=== PATIENT | male | born 1950 | race Hispanic/Latino ===

== ENCOUNTER 2017-07-23 02:49 | Inpatient (IN) | payer BC, MEDICARE ==
[2017-07-23] MEDS ORDERED: Albuterol-Ipratrop 3 mg / 0.5 (3 ml) UD IH STA (02:54)
--- NOTE | 2017-07-23 03:20 | ED PDOC ---
Arrival/HPI - General Chief Complaint: Shortness Of Breath Time Seen by Provider: 07/23/17 02:52 Historian: Patient - Critical Care Critical Care Minutes: 30 minutes - History of Present Illness Narrative History of Present Illness (Text): 07/23/17 03:21 A 67 year old male, whose past medical history includes hypertension and CAD s/ p cardiac stents (2012), was brought in by EMS to the emergency department following onset of shortness of breath at home. Patient woke up with difficulty breathing. Denies any chest pain. Patient was placed on BIPAP prior to arrival to the emergency department by paramedics. Patient denies any priror history of fever, chills, cough. Denies any leg pain or any other complaints at this time. Symptom Onset: Sudden Symptom Course: Unchanged Activities at Onset: Rest Context: Home Past Medical History - Provider Review Nursing Documentation Reviewed: Yes - Infectious Disease Hx of Infectious Diseases: None - Cardiac Hx PR: Yes Hx Hypertension: Yes Hx Pacemaker: No - Neurological Hx Paralysis: No - Hematological/Oncological Hx Blood Transfusions: No Hx Blood Transfusion Reaction: No - Musculoskeletal/Rheumatological Hx Musculoskeletal Disorders: No Hx Gout: Yes - Psychiatric Hx Emotional Abuse: No Hx Physical Abuse: No Hx Substance Use: No - Surgical History Hx Cardiac Catheterization: Yes Hx Coronary Stent: Yes - Anesthesia Hx Anesthesia Reactions: No Hx Malignant Hyperthermia: No - Suicidal Assessment Feels Threatened In Home Enviroment: No Family/Social History - Physician Review Nursing Documentation Reviewed: Yes Family/Social History: No Known Family HX Smoking Status: Never Smoked Hx Alcohol Use: Yes ([employer]) Hx Substance Use: No Allergies/Home Meds Allergies/Adverse Reactions: Allergies No Known Allergies Allergy (Verified 07/23/17 02:56) Home Medications: Home Meds Medication Instructions Recorded Confirmed Allopurinol [Zyloprim] 100 mg PO DAILY 07/23/17 07/23/17 Metoprolol Tartrate [Lopressor] 50 mg PO BID 07/23/17 07/23/17 Pravastatin Sodium [Pravachol] 20 mg PO DAILY 07/23/17 07/23/17 Valsartan [Diovan] 40 mg PO DAILY 07/23/17 07/23/17 Review of Systems - Physician Review All systems were reviewed & negative as marked: Yes - Review of Systems Constitutional: absent: Fevers, Other (chills) Respiratory: SOB. absent: Cough Cardiovascular: absent: Chest Pain Musculoskeletal: absent: Other (leg pain) Physical Exam Vital Signs Reviewed: Yes Vital Signs Temp Pulse Resp BP Pulse Ox 07/23/17 05:00 98.6 F 101 H 16 142/101 H 98 07/23/17 04:09 109 H 130/91 H 07/23/17 04:00 108 H 07/23/17 03:42 98.2 F 110 H 20 130/91 H 98 07/23/17 03:08 30 H 07/23/17 03:02 177/115 H Appearance: Positive for: Comfortable, Other (mild respiratory distress on BIPAP ) Pain Distress: None Mental Status: Positive for: Alert and Oriented X 3 - Systems Exam Head: Present: Atraumatic, Normocephalic Pupils: Present: PERRL Extroacular Muscles: Present: EOMI Conjunctiva: Present: Normal Mouth: Present: Moist Mucous Membranes Neck: Present: Normal Range of Motion Respiratory/Chest: Present: Respiratory Distress (mild), Rales (b/l) Cardiovascular: Present: Normal S1, S2, Tachycardic. No: Murmurs Abdomen: Present: Normal Bowel Sounds. No: Tenderness, Distention, Peritoneal Signs Back: Present: Normal Inspection Upper Extremity: Present: Normal Inspection, NORMAL PULSES, Neurovascularly Intact. No: Cyanosis, Edema Lower Extremity: Present: Normal Inspection, NORMAL PULSES, Neurovascularly Intact. No: Edema Neurological: Present: GCS=15, CN II-XII Intact, Speech Normal, Motor Func Grossly Intact, Normal Sensory Function Skin: Present: Warm, Dry, Normal Color. No: Rashes Psychiatric: Present: Alert, Oriented x 3, Normal Insight, Normal Concentration Medical Decision Making ED Course and Treatment: 07/23/17 03:16 Impression: A 67 year old male with shortness of breath on BIPAP. Plan: -- EKG -- Chest xray -- labs -- Duoneb, Lasix -- BIPAP -- Reassess and disposition Progress Notes: EKG: Ordered, reviewed, and independently interpreted the EKG. Rate : 113 BPM Rhythm : sinus tachycardia Interpretation : incomplete left bundle branch block, anterolateral ST/T changes 07/23/17 03:30 Chest xray: Congestive heart failure, as read by me. 07/23/17 04:[address] Garcia, who accepts patient under her service. 07/23/17 04:[address] Grissom who will be on consult. Case discussed with Dr. Michelle Hill. Patient will be admitted to CCU for further management. - Lab Interpretations Lab Results: 07/23/17 03:55 07/23/17 03:00 Lab Results 07/23/17 03:55: pCO2 39, pO2 371.0 H, HCO3 24.7, ABG pH 7.41, ABG Total CO2 25.9 , ABG O2 Saturation 99.9 H, ABG O2 Content 24.0 H, ABG Base Excess 0.2, ABG Hemoglobin 16.9, ABG Carboxyhemoglobin 1.7 H, POC ABG HHb (Measured) 0.1, ABG Methemoglobin 1.1, ABG O2 Capacity 24.0, Hgb O2 Saturation 97.1, FiO2 100.0 07/23/17 03:55: WBC 10.3, RBC 5.10, Hgb 16.8, Hct 49.4, MCV 96.9, MCH 32.9, MCHC 34.0, RDW 13.0, Plt Count 159, MPV 12.3 H, Gran % 76.2 H, Lymph % (Auto) 15.2 L, Dade % (Auto) 7.0 H, Eos % (Auto) 1.3 L, Baso % (Auto) 0.3, Gran # 7.81 H, Lymph # 1.6, Dade # 0.7 H, Eos # 0.1, Baso # 0.03 07/23/17 03:00: TSH 3rd Generation 4.12 07/23/17 03:00: Triglycerides 291 H, Cholesterol 174, LDL Cholesterol Direct 105 , HDL Cholesterol 34 07/23/17 03:00: Sodium 139, Potassium 4.2, Chloride 102, Carbon Dioxide 27, Anion Gap 14, BUN 20, Creatinine 1.1, Est GFR ( Amer) > 60, Est GFR (Non- Af Amer) > 60, Random Glucose 146 H, Calcium 10.0, Total Bilirubin 0.8, AST 100 H, ALT 52, Alkaline Phosphatase 81, Lactate Dehydrogenase 1046 H, Total Creatine Kinase 554 H, CK-MB (CK-2) 29.0 H, CK-MB (CK-2) % 5.2 H, Troponin I 6.05 H*, NT-Pro-B Natriuret Pep 1570 H, Total Protein 7.3, Albumin 4.2, Globulin 3.2, Albumin/Globulin Ratio 1.3 07/23/17 03:00: PT 14.3 H, INR 1.30 H, APTT 31.7 I have reviewed the lab results: Yes - RAD Interpretation Radiology Orders: 07/23/17 02:54 CHEST PORTABLE [RAD] Stat - EKG Interpretation Interpreted by ED Physician: Yes Type: 12 lead EKG - Medication Orders Current Medication Orders: Albuterol/Ipratropium (Duoneb 3 Mg/0.5 Mg (3 Ml) Ud) 3 ml IH Q2H PRN PRN Reason: Shortness of Breath Aspirin (Ecotrin) 81 mg PO DAILY [facility] Atorvastatin Calcium (Lipitor) 10 mg PO DIN [facility] Clopidogrel Bisulfate (Plavix) 75 mg PO DAILY [facility] Enoxaparin Sodium (Lovenox) 80 mg SC Q12 [facility] PRN Reason: Protocol Furosemide (Lasix) 80 mg IVP Q12 [facility] Losartan Potassium (Cozaar) 12.5 mg PO DAILY [facility] Metoprolol Tartrate (Lopressor) 50 mg PO BID [facility] Nitroglycerin (Nitro-Bid 2% Oint) 1 ea TOP Q4H PRN PRN Reason: Chest pain Pantoprazole Sodium (Protonix Ec Tab) 40 mg PO 0600 [facility] Discontinued Medications Albuterol/Ipratropium (Duoneb 3 Mg/0.5 Mg (3 Ml) Ud) 3 ml IH ONCE STA Stop: 07/23/17 02:55 Last Admin: 07/23/17 03:03 Dose: 3 ml Aspirin (Aspirin) 325 mg PO ONCE STA Stop: 07/23/17 03:31 Last Admin: 07/23/17 03:41 Dose: Enoxaparin Sodium (Lovenox) 80 mg SC STAT STA PRN Reason: Protocol Stop: 07/23/17 04:30 Last Admin: 07/23/17 04:58 Dose: 80 mg Subcutaneous Administrations Document 07/23/17 04:58 AB (Rec: 07/23/17 04:59 AB [facility] [id number]) Injection Site MAR Injection Site Right Abdomen Charges for Administration # of Subcutaneous Administrations 1 Furosemide (Lasix) 80 mg IVP ONCE ONE Stop: 07/23/17 02:55 Last Admin: 07/23/17 03:02 Dose: 80 mg MAR Blood Pressure Document 07/23/17 03:02 AB (Rec: 07/23/17 03:02 AB [facility] [id number]) Blood Pressure Blood Pressure (100/60-150/90) 177/115 IVP Administration Document 07/23/17 03:02 AB (Rec: 07/23/17 03:02 AB [facility] [id number]) Charges for Administration # of IVP Administrations 1 Metoprolol Tartrate (Lopressor) 25 mg PO ONCE STA Stop: 07/23/17 04:00 Last Admin: 07/23/17 04:09 Dose: 25 mg MAR Pulse and Blood Pressure Document 07/23/17 04:09 SC (Rec: 07/23/17 04:09 SC [id number]) Pulse Pulse Rate (60-90) 109 Blood Pressure Blood Pressure (100/60-150/90) 130/91 Nitroglycerin (Nitro-Bid 2% Oint) 1 ea TOP ONCE STA Stop: 07/23/17 03:31 Last Admin: 07/23/17 03:40 Dose: 1 ea - Scribe Statement The provider has reviewed the documentation as recorded by the Enedelia Flaherty Provider Scribe Attestation: All medical record entries made by the Scribe were at my direction and personally dictated by me. I have reviewed the chart and agree that the record accurately reflects my personal performance of the history, physical exam, medical decision making, and the department course for this patient. I have also personally directed, reviewed, and agree with the discharge instructions and disposition. Disposition/Present on Arrival - Present on Arrival Any Indicators Present on Arrival: No History of DVT/PE: No History of Uncontrolled Diabetes: No Urinary Catheter: No History of Decub. Ulcer: No History Surgical Site Infection Following: None - Disposition Have Diagnosis and Disposition been Completed?: Yes Diagnosis: CHF (congestive heart failure), NSTEMI (non-ST elevated myocardial infarction) Disposition: HOSPITALIZED Disposition Time: 05:01 Patient Plan: Admission Patient Problems: Current Active Problems Problem Status Onset CHF (congestive heart failure) Acute NSTEMI (non-ST elevated myocardial infarction) Acute Condition: GUARDED
[2017-07-23] MEDS ORDERED: Nitroglycerin 2% Ointment Foilpak UD TOP STA (03:30)
[2017-07-23 03:36] LABS: INR 1.3 (0.93-1.08); PARTIAL THROMBOPLASTIN TIME 31.7 Seconds (25.1-36.5)
[2017-07-23 03:59] LABS: ALB/GLOB RATIO 1.3 (1.1-1.8); ALKALINE PHOSPHATASE 81 U/L (38-126); ALT/SGPT 52 U/L (7-56); AST/SGOT 100 U/L (17-59); BILIRUBIN,TOTAL 0.8 mg/dL (0.2-1.3); BLOOD UREA NITROGEN 20 mg/dL (7-21); CARBON DIOXIDE 27 mmol/L (21-33); CHLORIDE 102 mmol/L (98-107); GFR AFRICAN-AMERICAN > 60; GLUCOSE,RANDOM 146 mg/dL (70-110); POTASSIUM 4.2 mmol/L (3.6-5.0); SODIUM 139 mmol/L (132-148); TOTAL PROTEIN 7.3 g/dL (5.8-8.3); TROPONIN I 6.05 ng/mL
[2017-07-23 04:12] LABS: ARTERIAL BLOOD GAS HCO3 24.7 mmol/L (21-28); ARTERIAL BLOOD GAS PH 7.41 (7.35-7.45); ARTERIAL BLOOD HGB O2 SAT 97.1 % (95.0-98.0); CARBOXYHEMOGLOBIN 1.7 % (0.5-1.5); HHB 0.1 % (0-5); METHEMOGLOBIN 1.1 % (0.0-3.0)
[2017-07-23 04:14] LABS: BASO # 0.03 K/mm3 (0.0-2.0); BASO % 0.3 % (0.0-3.0); EOS # 0.1 (0.0-0.7); EOS % 1.3 % (1.5-5.0); GRAN # 7.81 (1.4-6.5); GRAN % 76.2 % (50.0-68.0); HEMATOCRIT 49.4 % (42.0-52.0); LYMPH # 1.6 (1.2-3.4); LYMPH % 15.2 % (22.0-35.0); MEAN CELL VOLUME 96.9 fl (80.0-105.0); MEAN CORPUSCULAR HEMOGLOBIN 32.9 pg (25.0-35.0); MEAN PLATELET VOLUME 12.3 fl (7.0-11.0); MONO # 0.7 (0.1-0.6); WHITE BLOOD COUNT 10.3 10^3/ul (4.5-11.0)
[2017-07-23] MEDS ORDERED: Enoxaparin 80 mg Syringe SC STA (04:29)
[2017-07-23] MEDS ORDERED: Albuterol-Ipratrop 3 mg / 0.5 (3 ml) UD IH PRN (05:22)
[2017-07-23] MEDS ORDERED: Nitroglycerin 2% Ointment Foilpak UD TOP PRN (05:29)
--- NOTE | 2017-07-23 05:42 | CP.PCM.CON ---
<Manuel Mcmahon - Last Filed: 07/23/17 05:32> History of Present Illness - History of Present Illness History of Present Illness: Manuel Mcmahon DO PGY1 - ICU Consult Note Consultation for NSTEMI HPI: 67 yo M with PMH HTN, HLD, CAD, PA 2013 s/p stents placed at [facility] presents to the ER by ambulance complaining of shortness of breath. His symptoms started yesterday around lunch time, after eating a salty meat loaf at a restaurant, then acutely worsened at 2 AM. He reports that he has been eating out frequently over the past 2-3 days. He denies any chest pain/ tightness/discomfort, palpitations, weakness, diaphoresis. No particular remitting or exacerbating factors. He denies recent illness. He does reports very mild nausea, without vomiting. No abdominal pain, diarrhea, constipation, fever, chills. Patient is unsure if he has gained or lost weight recently. Remainder of 12-point ROS negative. PMH: As above PSH: Cholecystectomy Soc: Prior smoker, quit 40 years ago; drinks socially; denies illicits FHx: PA in both parents, unsure of age All: NKDA Past Patient History - Infectious Disease Hx of Infectious Diseases: None - Past Social History Smoking Status: Never Smoked - CARDIAC Hx Heart Attack: Yes Hx Hypertension: Yes Hx Pacemaker: No - NEUROLOGICAL Hx Paralysis: No - HEMATOLOGICAL/ONCOLOGICAL Hx Blood Transfusions: No Hx Blood Transfusion Reaction: No - MUSCULOSKELETAL/RHEUMATOLOGICAL Hx Musculoskeletal Disorders: No Hx Gout: Yes - PSYCHIATRIC Hx Emotional Abuse: No Hx Physical Abuse: No Hx Substance Use: No - SURGICAL HISTORY Hx Cardiac Catheterization: Yes Hx Coronary Stent: Yes - ANESTHESIA Hx Anesthesia Reactions: No Hx Malignant Hyperthermia: No Meds Allergies/Adverse Reactions: Allergies Allergy/AdvReac Type Severity Reaction Status Date / Time No Known Allergies Allergy Verified 07/23/17 02:56 - Medications Medications: Current Medications Albuterol/Ipratropium (Duoneb 3 Mg/0.5 Mg (3 Ml) Ud) 3 ml IH Q2H PRN PRN Reason: Shortness of Breath Aspirin (Ecotrin) 81 mg PO DAILY [facility] Clopidogrel Bisulfate (Plavix) 75 mg PO DAILY [facility] Enoxaparin Sodium (Lovenox) 80 mg SC Q12 [facility] PRN Reason: Protocol Furosemide (Lasix) 80 mg IVP Q12 [facility] Metoprolol Tartrate (Lopressor) 50 mg PO BID [facility] Nitroglycerin (Nitro-Bid 2% Oint) 1 ea TOP Q4H PRN PRN Reason: Chest pain Non-Formulary Medication (Pravastatin Sodium [Pravachol]) 20 mg PO DAILY [facility] Non-Formulary Medication (Valsartan [Diovan]) 20 mg PO DAILY [facility] Pantoprazole Sodium (Protonix Ec Tab) 40 mg PO 0600 [facility] Physical Exam - Constitutional Appears: Non-toxic, No Acute Distress Additional comments: Patient on BIPAP, speaking comfortably - Head Exam Head Exam: ATRAUMATIC, NORMOCEPHALIC - Eye Exam Eye Exam: EOMI, Normal appearance, PERRL - ENT Exam ENT Exam: Mucous Membranes Moist - Neck Exam Neck exam: Positive for: Normal Inspection - Respiratory Exam Respiratory Exam: Rales (bibasilar), NORMAL BREATHING PATTERN - Cardiovascular Exam Cardiovascular Exam: Tachycardia, REGULAR RHYTHM, +S1, +S2 - GI/Abdominal Exam GI & Abdominal Exam: Normal Bowel Sounds, Soft. absent: Distended, Firm, Guarding, Rebound, Rigid, Tenderness - Extremities Exam Extremities exam: Positive for: pedal edema (trace pretibial pitting edema to mid-goldberg). Negative for: calf tenderness - Neurological Exam Neurological exam: Alert, CN II-XII Intact, Oriented x3 - Psychiatric Exam Psychiatric exam: Normal Affect, Normal Mood - Skin Skin Exam: Dry, Intact, Normal Color Results - Vital Signs Recent Vital Signs: Last Vital Signs Temp 98.6 F 07/23/17 05:00 Pulse 101 H 07/23/17 05:00 Resp 16 07/23/17 05:00 BP 142/101 H 07/23/17 05:00 Pulse Ox 98 07/23/17 05:00 - Labs Result Diagrams: 07/23/17 03:55 07/23/17 03:00 Assessment & Plan - Assessment and Plan (Free Text) Assessment: 67 yo M with PMH HTN, HLD, CAD, PA 2013 s/p stents placed at [facility] presents to the ER by ambulance complaining of shortness of breath. Admitted to ICU for probable NSTEMI Plan Neuro - Patient AAOx3, mentating normally - Maintain normothermia Cardio - Patient has history of CAD (PA) s/p stents at [facility]; No prior echo at this facility - CXR significant for pulmonary vascular congestion, EKG shows ST depressions in lavell-lateral leads (pending official read), elevated troponin and BNP - Trend troponins and repeat EKG - Acute symptoms likely 2/2 NSTEMI vs CHF exacerbation - Patient received IV lasix and lovenox and placed on BIPAP in the ER - Continue IV lasix - Continue therapeutic lovenox - Continue BIPAP - HOB>30 - Continue home DAPT, BB, ARB - Ordered Nitro paste PRN for chest pain - Ordered Lipid panel, TSH, A1c - Cardiology consult requested, appreciate recs Pulm - Patient on BIPAP; saturating well on 35% FiO2 - CXR shows pulm vascular congestion compared to prior Rib XR (pending official read) - Continue Lasix and BIPAP as above - PRN duonebs ordered - Titrate FiO2 to maintain SaO2 >90% GI - maintain NPO pending cardio recs - Protonix for PPx Renal - Maintain euvolemia - Continue Lasix as above - Monitor I&O and daily weight - Monitor and replete lytes as needed Endo - Patient does not have history of diabetes; currently euglycemic - f/u TSH and A1c ID - Afebrile, no leukocytosis - Mild transaminemia; likely 2/2 congestive hepatopathy; ordered acute viral hepatitis panel Hem/Onc - H&H stable; no signs of acute bleeding - Continue to monitor GI/DVT Ppx - Protonix and SCD's in addition to lovenox Patient seen, discussed, and reviewed <[place] - Last Filed: 07/24/17 06:27> Results - Vital Signs Recent Vital Signs: Last Vital Signs Temp 98 F 07/23/17 18:00 Pulse 85 07/23/17 23:20 Resp 16 07/23/17 23:20 BP 129/74 07/23/17 23:18 Pulse Ox 92 L 07/23/17 23:20 - Labs Result Diagrams: 07/23/17 03:55 07/23/17 03:00 Labs: Laboratory Results - last 24 hr 07/23/17 07/23/17 07/23/17 08:40 08:40 22:15 APTT 76.0 H Troponin I 7.15 H* Hepatitis A IgM Ab Negative Hep Bs Antigen Negative Hep B Core IgM Ab Negative Hepatitis C Antibody Negative
[2017-07-23] MEDS ORDERED: Pantoprazole 40 mg EC Tab PO SCH (06:00)
[2017-07-23 06:15] LABS: CHOLESTEROL 174 mg/dL (130-200)
[2017-07-23 09:07] VITALS: BMI 30.1
--- NOTE | 2017-07-23 09:53 | RAD ---
HISTORY: sob COMPARISON: No prior. FINDINGS: LUNGS: No focal consolidation. There is suspected mild reticular interstitial infiltrate, most prominently at the bases. Follow-up advised. PLEURA: No significant pleural effusion identified, no pneumothorax apparent. CARDIOVASCULAR: Normal. OSSEOUS STRUCTURES: No significant abnormalities. VISUALIZED UPPER ABDOMEN: Normal. OTHER FINDINGS: None. IMPRESSION: Suspected reticular interstitial infiltrate most prominently at the lung bases. No focal consolidation.
[2017-07-23] MEDS ORDERED: Enoxaparin 80 mg Syringe SC SCH (10:00)
--- NOTE | 2017-07-23 10:21 | CARD ---
APPROVED REPORT EKG Measurement Heart [id number] <Conclusion> Normal sinus rhythm Nonspecific intraventricular conduction delay Q in lll STTW changes c/w ischemia C/W earlier ECG: the rate is slower, there is less ST depression, there is a Q wave in lll, R/O IMI, evolving
--- NOTE | 2017-07-23 10:28 | CARD ---
APPROVED REPORT EKG Measurement Heart [id number] <Conclusion> Sinus tachycardia Incomplete left bundle branch block ST elevation, consider inferior injury or acute infarct Possible ACUTE [place] STTW changes c/w ischmia
--- NOTE | 2017-07-23 10:32 | CP.PCM.PN ---
Subjective - Date & Time of Evaluation Date of Evaluation: 07/23/17 Time of Evaluation: 07:40 - Subjective Subjective: Pt seen and examined, reports SOB has significantly improved, titrated off BIPAP to 2LNC, doing well, awaiting cardiac cath Objective - Vital Signs/Intake and Output Vital Signs (last 24 hours): Temp Pulse Resp BP Pulse Ox 97.8 F 78 21 95/66 L 94 L 07/23/17 08:00 07/23/17 09:17 07/23/17 09:00 07/23/17 09:17 07/23/17 09:00 - Medications Medications: Current Medications Albuterol/Ipratropium (Duoneb 3 Mg/0.5 Mg (3 Ml) Ud) 3 ml IH Q2H PRN PRN Reason: Shortness of Breath Aspirin (Ecotrin) 81 mg PO DAILY [facility] Last Admin: 07/23/17 09:53 Dose: 81 mg Atorvastatin Calcium (Lipitor) 10 mg PO DIN [facility] Clopidogrel Bisulfate (Plavix) 75 mg PO DAILY [facility] Last Admin: 07/23/17 09:53 Dose: 75 mg Enoxaparin Sodium (Lovenox) 80 mg SC Q12 [facility] PRN Reason: Protocol Last Admin: 07/23/17 09:17 Dose: Not Given Furosemide (Lasix) 80 mg IVP Q12 [facility] Losartan Potassium (Cozaar) 12.5 mg PO DAILY [facility] Metoprolol Tartrate (Lopressor) 50 mg PO BID [facility] Last Admin: 07/23/17 09:17 Dose: Not Given Nitroglycerin (Nitro-Bid 2% Oint) 1 ea TOP Q4H PRN PRN Reason: Chest pain Pantoprazole Sodium (Protonix Ec Tab) 40 mg PO 0600 [facility] - Labs Labs: PT 14.3 SECONDS (9.4-12.5) H 07/23/17 03:00 INR 1.30 (0.93-1.08) H 07/23/17 03:00 APTT 31.7 Seconds (25.1-36.5) 07/23/17 03:00 - Constitutional Appears: Well, Non-toxic, No Acute Distress - Eye Exam Eye Exam: EOMI - ENT Exam ENT Exam: Mucous Membranes Moist - Respiratory Exam Respiratory Exam: NORMAL BREATHING PATTERN Additional comments: bibasilar crackles - Cardiovascular Exam Cardiovascular Exam: REGULAR RHYTHM, +S1, +S2 - GI/Abdominal Exam GI & Abdominal Exam: Soft, Normal Bowel Sounds - Extremities Exam Extremities Exam: Pedal Edema - Neurological Exam Neurological Exam: Alert, Awake Neuro motor strength exam: Left Upper Extremity: 5, Right Upper Extremity: 5, Left Lower Extremity: 5, Right Lower Extremity: 5 - Skin Skin Exam: Normal Color Assessment and Plan - Assessment and Plan (Free Text) Assessment: 67yo male a/w CHF, NSTEMi Acute Decompensated CHF exacerbation NSTEMI SOB HX of CAD - currently afebrile, HD stable, comfortable on 2LNC, doing well off BIPAP, reports SOB has improved - Troponins uptrending, awaiting cardiac cath Recommend: - supp o2 as needed - prince culture, check procalcitonin - ASA, plavix, Statin, BB - IV Lasix - IV lovenox, full A/C - NPO For cardiac cath - ECHO - follow up cardiology - check hep Panel, RUQ sono - GI ppx - DVT ppx - NPO - monitor in MICU, awaiting cardiac cath
[2017-07-23] MEDS ORDERED: Iohexol 350 MG/100 ML VIAL ONE (14:12)
[2017-07-23] MEDS ORDERED: Iohexol 350mgl/ml 50 ML ONE (14:12)
[2017-07-23] MEDS ORDERED: Nitroglycerin 50mg in D5W 50 MG/250 ML BOTTLE IV ONE (14:12)
[2017-07-23] MEDS ORDERED: Lidocaine 2% Inj (20ml) ONE (14:13)
[2017-07-23] MEDS ORDERED: Midazolam 2 MG/2 ML VIAL ONE (14:32)
[2017-07-23] MEDS ORDERED: Heparin25000 units/250ml 1/2NS 25,000 UNITS/250 ML BAG IV ONE (15:05)
[2017-07-23] MEDS ORDERED: Bacitracin 500 Units/gm Oint Foilpak UD TOP ONE (15:38)
[2017-07-23] MEDS ORDERED: Sodium Chloride 0.9% 1,000 ML IV SCH (15:45)
[2017-07-23] MEDS ORDERED: Heparin25000 units/250ml 1/2NS 25,000 UNITS/250 ML BAG IV SCH (15:45)
--- NOTE | 2017-07-23 17:05 | CARD ---
APPROVED REPORT Procedure(s) performed: Left Heart Catheterization HISTORY The patient is a 67 year-old with a history of : previous NV (> 7 days), previous diagnostic cath, previous PCI (The PCI date was 12/04/2012), hypertension , dyslipidemia , Hx of IWMI, S/p PTCA RCA in 12/2012 and staged PTCA of Circumflex in 01/2013 admitted with Acute pulmonary edema and NSTEMI.. INDICATION The indication(s) include : non-STEMI , dyspnea. CASE TECHNIQUE The patient was brought emergently to the Cardiac Catheterization Laboratory in a fasting state and was prepped and draped in a sterile manner. The left wrist was infiltrated with 2% Lidocaine subcutaneous anesthesia. A 6FR GLIDESHEATH ACCESS KIT sheath was inserted into the left radial artery without difficulty. Coronary angiography was performed using coronary diagnostic catheters. The left coronary system was accessed and visualized with a Diagnostic ,5 Fr JL 4 catheter. The right coronary system was accessed and visualized with a Diagnostic ,5 Fr JR 4 catheter. The left ventricle was accessed and visualized with a 5 Fr Pigtail 145 (Angled) catheter. Left ventricular/Aortic Valve gradient assessed on pullback. Left ventriculogram was performed in ANDREW projection. The patient tolerated the procedure well and there were no complications associated with the procedure. Vessel Analysis The patient's coronary anatomy is right dominant. The left main coronary artery is a medium size vessel with diffuse calcification noted throughout this vessel and with significant stenosis. There is a 80% stenosis in the distal segment. The left main bifurcates to the left anterior descending and circumflex. The left anterior descending artery is a medium size vessel with diffuse calcification noted throughout this vessel and with significant stenosis. There is a 80% stenosis in the ostial segment. The first diagonal branch is a medium size vessel with diffuse calcification noted throughout this vessel and without significant stenosis. The circumflex artery is a medium size vessel with diffuse calcification noted throughout this vessel and with significant stenosis. There is a 95% stenosis in the ostial segment. The first obtuse marginal branch is a medium size vessel with diffuse calcification noted throughout this vessel and without significant stenosis. There is a 50-60% stenosis in the mid segment. The right coronary artery is a large size vessel with diffuse calcification noted throughout this vessel and without significant stenosis. There is a 30-40% stenosis in the mid segment. instent restenosis The right posterior descending artery is a large size vessel with diffuse calcification noted throughout this vessel and without significant stenosis. The right posterolateral branch is a large size vessel with diffuse calcification noted throughout this vessel and without significant stenosis. Left Ventricle The left ventricle is borderline enlarged in size with moderately decreased contractility. Ischemic cardiomyopathy. The left ventricular ejection fraction is estimated to be 35-40%. The left ventricular end diastolic pressure is 20-25 mmHg. There was no gradient across the aortic valve upon pullback. Conclusion TWo Vessel Critical Disease LAD and Circumflex including Distal left Main Diease. Mild RCA Instent restenosis. Ischemic FXA-WB-90-40%, EDP-20-25 mmof Hg. 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 DC Plavix, Continue ARB/ Nitrates/ ASA Start Heparin 1000 units /hour, F/u protocol after 6 hours DC Left Radial TR band as per protocol. CC; / R Maty / Neva Rutledge.( [facility]).
[2017-07-23 18:59] VITALS: TEMP 98
--- NOTE | 2017-07-23 20:30 | CON ---
REASON FOR ADDENDUM: Patient underwent cardiac catheterization showed
[2017-07-23] MEDS ORDERED: Bacitracin 500 Units/gm Oint Foilpak UD ONE (20:50)
[2017-07-23 23:43] VITALS: BP 129/74; PULSE 85; RESP 16; O2SAT 92
--- NOTE | 2017-07-24 10:46 | CON ---
DATE: 07/23/2017 REASON FOR THE CONSULTATION: Chest pain, shortness of breath, non-ST segment myocardial infarction, cardiac evaluation. BRIEF CLINICAL HISTORY: This is a 67-year-old male employee of the [employer] with history of coronary artery disease, history of stent, cardiac catheterization in 12/2012, two stents and the patient presented with acute OR at [facility] and then staged angioplasty in January, one more stent total 3 stent was done, who was in usual state of health. 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 Complained of some chest discomfort but more shortness of breath. Denies any chest pain now. PAST MEDICAL HISTORY: Significant for coronary artery disease status post stent in 2012 when the patient presented with acute OR at [facility] and then the patient staged angioplasty details unknown. SOCIAL HISTORY: Denies smoking. Denies any history of alcohol abuse. CURRENT MEDICATIONS: The patient is taking at home, Diovan 40 mg daily, Pravachol 40 mg daily, metoprolol 50 mg daily, allopurinol 100 mg daily, aspirin 81 mg daily, and clopidogrel 75 mg daily. REVIEW OF SYSTEMS: As per HPI. PHYSICAL EXAMINATION: VITAL SIGNS: Temperature afebrile, heart rate 72, and blood pressure 95/66. HEENT: PERRLA. Extraocular muscles intact. NECK: Supple. No carotid bruits or thyromegaly. CHEST: Clear to auscultation. HEART: S1 and S2 regular. ABDOMEN: Soft. EXTREMITIES: Clubbing and cyanosis negative. LABORATORY DATA: Blood workup as follows; WBC 10.3, hemoglobin 16.8, hematocrit 49.9, and platelet count 159. Chemistry shows sodium 139, potassium 4.2, chloride 102, carbon dioxide 27, anion gap of 14, BUN 20, and creatinine 1.1. 6.05, repeated 7.15. EKG before that shows normal sinus, ST depression lateral lead. IMPRESSION: Non-ST segment myocardial infarction, coronary artery disease, status post stent, hypertension, hyperlipidemia, diabetes, and acute coronary syndrome. RECOMMENDATIONS: We will hold the Lovenox further. Load aspirin and Plavix. We will check PRU level and cardiac catheterization was explained to the patient and the patient's and we will proceed for cardiac catheterization. We will get lipid profile, TSH, and hemoglobin A1c. We will get also echo. We will keep n.p.o. for cardiac catheterization today. Further recommendations after the cardiac catheterization. We will follow with you. Thank you Dr. Garcia for providing us opportunity in taking care of the patient, Merlin. We will hold Lovenox. We will keep n.p.o. Discussed with the who agreed, we will proceed for cardiac catheterization. Further recommendation after the cardiac catheterization. We will add Lipid profile, TSH, and hemoglobin A1c. We will order echo to assess LV function. Further recommendations will depend upon hospital course. Alex Arellano MD
== END 2017-07-23 23:29 | disposition short-term general hospital (02) | DRG 280 ==
LOC: ED 02:49 → ERH 04:57 → CCU 06:03
PROVIDERS: ADMIT Internal Medicine; ATTEND Internal Medicine
PROC: 4A023N7 Measurement of Cardiac Sampling and Pressure, Left Heart, Percutaneous Approach (ICD-10-PCS; principal; 2017-07-23)
PROC: B2111ZZ Fluoroscopy of Multiple Coronary Arteries using Low Osmolar Contrast (ICD-10-PCS; 2017-07-23)
PROC: B2151ZZ Fluoroscopy of Left Heart using Low Osmolar Contrast (ICD-10-PCS; 2017-07-23)
DX: I21.4 Non-ST elevation (NSTEMI) myocardial infarction (principal); I50.43 Acute on chronic combined systolic (congestive) and diastolic (congestive) heart failure; T82.855A Stenosis of coronary artery stent, initial encounter; E11.9 Type 2 diabetes mellitus without complications; I11.0 Hypertensive heart disease with heart failure; I25.5 Ischemic cardiomyopathy; I25.10 Atherosclerotic heart disease of native coronary artery without angina pectoris; Y83.1 Surgical operation with implant of artificial internal device as the cause of abnormal reaction of the patient, or of later complication, without mention of misadventure at the time of the procedure; I25.2 Old myocardial infarction; M10.9 Gout, unspecified; E78.5 Hyperlipidemia, unspecified; Z79.899 Other long term (current) drug therapy; Z87.891 Personal history of nicotine dependence; Z90.49 Acquired absence of other specified parts of digestive tract